=== PATIENT | female | born 1970 | race Caucasian/White ===

== ENCOUNTER 2022-08-07 17:31 | Outpatient (CLI) | payer BC ==
--- NOTE | 2022-08-08 09:10 | XRAY Report ---
PROCEDURE: Wrist 3 View LT INDICATIONS: L WRIST PX TECHNIQUE: 3 views of the wrist were acquired. COMPARISON: None. FINDINGS: Bones: No fractures or dislocations. No suspicious bony lesions. Mild STT and first CMC joint dege nerative changes. Soft tissues: No suspicious soft tissue calcifications. IMPRESSION: No acute osseous abnormality. If symptoms persist, follow-up radiographs and/or CT or MRI may be help ful for further evaluation. Reviewed by: Torito Dyson MD on 08/08/2022 9:08 AM [facility] Approved by: Torito Dyson MD on 08/08/2022 9:08 AM [facility] Station ID: [id number]
--- NOTE | 2022-08-08 09:13 | XRAY Report ---
PROCEDURE: Elbow 3 View LT INDICATIONS: L ARM PX TECHNIQUE: 3 views of the elbow were acquired. COMPARISON: None FINDINGS: Bones: No fractures or dislocations. No suspicious bony lesions. Soft tissues: No elbow joint effusion. No suspicious soft tissue calcifications. IMPRESSION: No acute osseous abnormality. If symptoms persist, follow-up radiographs and/or CT or MRI may be help ful for further evaluation. Reviewed by: Torito Dyson MD on 08/08/2022 9:12 AM [facility] [place] Approved by: Torito Dyson MD on 08/08/2022 9:12 AM [facility] [place] Station ID: [id number]
== END 2022-08-07 23:59 | disposition home or self-care (01) ==
LOC: DI.N 17:31
PROVIDERS: ATTEND Registered Nurse
DX: M79.602 Pain in left arm (principal)